=== PATIENT | female | born 1960 | race Caucasian/White ===

== ENCOUNTER 2016-05-12 11:29 | Emergency (ER) | payer SELFPAY ==
--- NOTE | 2016-05-12 13:18 | ED NURSING NOTES ---
Clinical Report - Nurses [facility] [address] [place] [address] 05/12/2016 11:32 Patient: PRINCE YOUNG TRIAGE Acuity: LEVEL 4. Chief Complaint: REDNESS TO RIGHT EYE. REDNESS TO LEFT EYE. Alert. No acute distress. --12:20 Sarah Xiong R.N. 12:14 05/12/16. BP: 121/81. HR: 89. RR: 16. O2 saturation: 96%. Temp: 98.3 F (oral). Pain level now: 12/03. --12:20 Sarah Xiong R.N. Weight: 56.6 kg stated. Height/Length: 68 inches Per Patient. BMI: 19. --12:17 Sarah Xiong R.N. Medications None. --12:19 Sarah Xiong R.N. Medication/allergy information source: the patient. --12:20 Sarah Xiong R.N. Allergies No Known Drug Allergy. --12:19 Sarah Xiong R.N. History Arrived by private vehicle. Historian: patient. Accompanied by (friend). Onset. (2 weeks ago). ( Pt states she feels she has syphlilis because her boyfriend "messes with this girl that has it and his eyes got red just like mine are now."). PAST MEDICAL HX: The patient is post-menopausal. SOCIAL HX: Current every day smoker (cigarette) (chews tobacco). No alcohol use or drug use. FALL RISK ASSESSMENT: Fall risk assessment completed. No fall risk identified. NUTRITIONAL RISK ASSESSMENT: The nutritional risk assessment revealed no deficiencies. FUNCTIONAL ASSESSMENT: Functional assessment: no impairments noted. LEARNING NEEDS ASSESSMENT: The learning needs assessment revealed no barriers. SKIN INTEGRITY ASSESSMENT: Skin integrity risk assessment completed. No skin integrity risk identified. --12:20 Sarah Xiong R.N. PROBLEMS: Otitis Externa. Pain in R scapula. Dental Pain. Dental Abscess. Abscess. LNMP - Last Normal Menstrual Period. --12:19 Sarah Xiong R.N. ADDITIONAL SURGERIES: Tonsillectomy. --12:19 Sarah Xiong R.N. Assessment GENERAL / NEURO / PSYCH: Alert. Oriented X 4. Appears in no acute distress. Patient appears calm and cooperative. RESPIRATORY: Respirations not labored. CVS: Capillary refill less than 2 seconds. GI / : Abdomen soft and nontender. SKIN: Mucous membranes are pink. Skin is warm and dry. --12:20 Sarah Xiong R.N. Interventions ID band on patient. To treatment room. --12:20 Sarah Xiong R.N. PHYSICAL ASSESSMENT Ambulatory to room. GENERAL / NEURO / PSYCH: Alert. Appears in no acute distress. HEENT: No facial asymmetry noted. Visual acuity without corrective lenses: left eye 20/100; right eye 20/100; both eyes 20/100. Conjunctival findings present: redness of the right conjunctiva and thin exudate present in the right eye and redness of the left conjunctiva and thin exudate present in the left eye. Mouth inspection within normal limits. RESPIRATORY: Respirations not labored. SKIN: Skin is warm and dry. Normal skin turgor. --12:22 Sarah Xiong R.N. NURSING PROGRESS NOTES 12:23 05/12/16. Two patient identifiers checked. Call light placed in reach. Side rails up x 1. Bed placed in lowest position. Brakes of bed on. Patient ready for evaluation- chart flagged and ED physician notified. --12:23 Sarah Xiong R.N. 12:50 05/12/2016 FLUORESCEIN Opth soln 1 Strip given. Allergies verified and confirmed 5 rights. (at bedside). --12:50 Sarah Xiong R.N. 12:50 05/12/2016 Proparacaine Eye Drops 1 drop given. Allergies verified and confirmed 5 rights. (placed at bedside for MD). --12:51 Sarah Xiong R.N. DISPOSITION / DISCHARGE Departure time: 1324May 12 2016. Condition at departure: improved and stable. No learning barriers present. Discharge instructions provided and reviewed with the patient. Reviewed medication(s) side effects, precautions, dosing and course information. Prescription(s) given to the patient. Patient verbalized understanding. Written instructions provided in German. The patient was discharged by the physician. She was discharged home and accompanied by picker/puller. She left the Emergency Department ambulatory and via private vehicle. Roll Handler driving. --18:50 Sarah Xiong R.N. Locked/Released at 05/12/2016 18:50 by Sarah Xiong R.N.
--- NOTE | 2016-05-12 13:18 | ED NURSING NOTES ---
Clinical Report - Nurses [facility] [address] [place] [address] 05/12/2016 11:32 Patient: PRINCE YOUNG TRIAGE Acuity: LEVEL 4. Chief Complaint: REDNESS TO RIGHT EYE. REDNESS TO LEFT EYE. Alert. No acute distress. --12:20 Sarah Xiong R.N. 12:14 05/12/16. BP: 121/81. HR: 89. RR: 16. O2 saturation: 96%. Temp: 98.3 F (oral). Pain level now: 12/03. --12:20 Sarah Xiong R.N. Weight: 56.6 kg stated. Height/Length: 68 inches Per Patient. BMI: 19. --12:17 Sarah Xiong R.N. Medications None. --12:19 Sarah Xiong R.N. Medication/allergy information source: the patient. --12:20 Sarah Xiong R.N. Allergies No Known Drug Allergy. --12:19 Sarah Xiong R.N. History Arrived by private vehicle. Historian: patient. Accompanied by (friend). Onset. (2 weeks ago). ( Pt states she feels she has syphlilis because her boyfriend "messes with this girl that has it and his eyes got red just like mine are now."). PAST MEDICAL HX: The patient is post-menopausal. SOCIAL HX: Current every day smoker (cigarette) (chews tobacco). No alcohol use or drug use. FALL RISK ASSESSMENT: Fall risk assessment completed. No fall risk identified. NUTRITIONAL RISK ASSESSMENT: The nutritional risk assessment revealed no deficiencies. FUNCTIONAL ASSESSMENT: Functional assessment: no impairments noted. LEARNING NEEDS ASSESSMENT: The learning needs assessment revealed no barriers. SKIN INTEGRITY ASSESSMENT: Skin integrity risk assessment completed. No skin integrity risk identified. --12:20 Sarah Xiong R.N. PROBLEMS: Otitis Externa. Pain in R scapula. Dental Pain. Dental Abscess. Abscess. LNMP - Last Normal Menstrual Period. --12:19 Sarah Xiong R.N. ADDITIONAL SURGERIES: Tonsillectomy. --12:19 Sarah Xiong R.N. Assessment GENERAL / NEURO / PSYCH: Alert. Oriented X 4. Appears in no acute distress. Patient appears calm and cooperative. RESPIRATORY: Respirations not labored. CVS: Capillary refill less than 2 seconds. GI / : Abdomen soft and nontender. SKIN: Mucous membranes are pink. Skin is warm and dry. --12:20 Sarah Xiong R.N. Interventions ID band on patient. To treatment room. --12:20 Sarah Xiong R.N. PHYSICAL ASSESSMENT Ambulatory to room. GENERAL / NEURO / PSYCH: Alert. Appears in no acute distress. HEENT: No facial asymmetry noted. Visual acuity without corrective lenses: left eye 20/100; right eye 20/100; both eyes 20/100. Conjunctival findings present: redness of the right conjunctiva and thin exudate present in the right eye and redness of the left conjunctiva and thin exudate present in the left eye. Mouth inspection within normal limits. RESPIRATORY: Respirations not labored. SKIN: Skin is warm and dry. Normal skin turgor. --12:22 Sarah Xiong R.N. NURSING PROGRESS NOTES 12:23 05/12/16. Two patient identifiers checked. Call light placed in reach. Side rails up x 1. Bed placed in lowest position. Brakes of bed on. Patient ready for evaluation- chart flagged and ED physician notified. --12:23 Sarah Xiong R.N. 12:50 05/12/2016 FLUORESCEIN Opth soln 1 Strip given. Allergies verified and confirmed 5 rights. (at bedside). --12:50 Sarah Xiong R.N. 12:50 05/12/2016 Proparacaine Eye Drops 1 drop given. Allergies verified and confirmed 5 rights. (placed at bedside for MD). --12:51 Sarah Xiong R.N. DISPOSITION / DISCHARGE Departure time: 1324May 12 2016. Condition at departure: improved and stable. No learning barriers present. Discharge instructions provided and reviewed with the patient. Reviewed medication(s) side effects, precautions, dosing and course information. Prescription(s) given to the patient. Patient verbalized understanding. Written instructions provided in Italian. The patient was discharged by the physician. She was discharged home and accompanied by tune up mechanic. She left the Emergency Department ambulatory and via private vehicle. Spring Winder driving. --18:50 Sarah Xiong R.N. Locked/Released at 05/12/2016 18:50 by Sarah Xiong R.N.
--- NOTE | 2016-05-12 13:18 | ED CLINICAL REPORT ---
Clinical Report - Physicians/Mid Levels [place] [facility] [address] [place] [address] 05/12/2016 11:32 Patient: PRINCE YOUNG Arrived- By private vehicle. Historian- patient. HISTORY OF PRESENT ILLNESS Chief Complaint: EYE REDNESS and IRRITATION. This started the past 2 weeks, involves the right and left eye, is characterized as moderate in severity and is still present. The patient did not sustain an injury. This occurred at work. Not injured from contact lenses. No direct trauma to the eyes. No chemical exposure or UV light exposure. Eye discomfort, burning, redness, irritation and itching. No blurred vision or double vision. REVIEW OF SYSTEMS No fever, sore throat or cough. All systems otherwise negative, except as recorded above. PAST HISTORY See nurses notes. Medications: None. Allergies: No Known Drug Allergy. SOCIAL HISTORY Smoker- current status unknown. No alcohol use or drug use. PHYSICAL EXAM Appearance: Alert. Oriented X3. No acute distress. HEENT: Ears normal. Nose normal. Pharynx normal. Head appears normal to external inspection. Rt Eye: Pupil 3mm. Eyes: Visual acuity noted- see nurse's notes. Pupils equal, round and reactive to light. Accommodation normal. No foreign bodies gross examination and with eversion of eyelids. Slit lamp examination with forcing does not reveal any signs of dendritic pattern. No uptake of dye. No cell and flare. No hypopyon. No hyphema. Lids and lashes and lacrimal are normal. Lt Eye: Pupil 3mm. Neck: Neck supple. Normal inspection. CVS: Normal heart rate and rhythm. Respiratory: No respiratory distress. Breath sounds normal. Abdomen: Nontender. No organomegaly. Skin: No rash. Extremities: No clubbing present. Extremities negative. Neuro: Oriented X 3. Mood/affect normal. No motor deficit. PROGRESS AND PROCEDURES Course of Care: The patient is a pleasant 56-year-old female with no pertinent past medical history presenting for evaluation of red irritated eyes. At this time differential diagnosis includes viral, bacterial, or allergic conjunctivitis. Patient's examination of the eye does not reveal any concerning symptoms such as corneal ulcers or dendritic pattern to the cornea. Do not feel patient has glaucoma at this time as it would be very unusual for her to have these symptoms in both eyes at the same time. The patient reported significant improvement with her symptoms after having the proparacaine eyedrops. Patient will be given a prescription for antibiotic eye ointment of erythromycin as well as follow-up with the eye clinic across the street. Patient reports significant improvement with her symptoms. Do not feel patient needs to be admitted to the hospital at this time. Do not feel patient has a significant injury to the eye requiring admission to the hospital or further emergency department workup/evaluation. Head discussion with patient in regards to her workup, diagnosis, home care, follow-up, and return precautions. All questions answered. The patient expressed understanding of these instructions and was agreeable to them. Disposition: Discharged. Condition: good. CLINICAL IMPRESSION 05/12/2016 12:14 BP: 121/81. HR: 89. RR: 16. O2 saturation: 96%. Temp: 98.3 F. Pain level now: 8/10. Blood pressure normal. Oxygen saturation normal. Acute serous conjunctivitis of the right eye and left eye. INSTRUCTIONS Warnings: GENERAL WARNINGS: Return or contact your physician immediately if your condition worsens or changes unexpectedly, if not improving as expected, or if other problems arise. Specifically return if pain, vomiting, bleeding, breathing difficulty or fever. Your Current Medications: CONTINUE TAKING THE FOLLOWING MEDICATIONS: None*. Prescription Medications: Erythromycin ophthalmic ointment 0.5% : apply 0.5 inch to inner aspect of the lower lid on the affected eye every 6 hours while awake for 5 days. Dispense three and one half (3.5) grams. No refill. (each eye) Hydroxyzine 50 mg: take 1 orally every 8 hours. Dispense twenty (20). No refill. (red eyes) Follow-up: Return to the emergency department as needed. Follow up with your doctor in three days. Reason for referral: recheck today's concerns. Summary of care provided to patient via paper. Screening today revealed the patient's blood pressure to be in the normal range. The patient should follow up with a primary care provider for blood pressure management. Understanding of the discharge instructions verbalized by patient. Follow-up with: Shikha Dominguez MD, Ophthalmology, [facility] [address], , [place], [address] Follow up in three days. Reason for referral: recheck today's concerns. Summary of care provided to patient via paper. (Electronically signed by Daniel Ahmadi Dr. 05/16/2016 6:10)
--- NOTE | 2016-05-12 13:18 | ED ORDER SUMMARY ---
..... Patient: PRINCE YOUNG OrderSheet [facility] VisitID: [id number] [place] [address] 56y, F Registration Date/Time: 05/12/2016 ORDER SHEET Weight: 56.6 kg (stated) Allergies: No Known Drug Allergy GENERAL ORDERS: MEDICATION ORDERS: Fluorescein Eye Strips 1 strips (NOW) (12:29 05/12/2016 Joann Balderas) (Ack 12:45 MWinterer R.N.) (12:50 MWinterer R.N.) Proparacaine Eye Drops (Solution 0.5 %) 2 drops (place at bedside) (12:05/12/2016 Joann Balderas) (Ack 12:45 MWinterer R.N.) (12:51 MWinterer R.N.) IV FLUIDS: ORDER SHEET NOTES: [Electronically signed by Sarah Xiong R.N. (18:50 05/12/2016)] [Electronically signed by Daniel Ahmadi Dr. (06:10 05/16/2016)] [Electronically locked/signed by Sarah Xiong R.N. (18:50 05/12/2016)]
--- NOTE | 2016-05-12 13:18 | ED ORDER SUMMARY ---
..... Patient: PRINCE YOUNG OrderSheet [facility] VisitID: [id number] [place] [address] 56y, F Registration Date/Time: 05/12/2016 ORDER SHEET Weight: 56.6 kg (stated) Allergies: No Known Drug Allergy GENERAL ORDERS: MEDICATION ORDERS: Fluorescein Eye Strips 1 strips (NOW) (12:29 05/12/2016 Joann Balderas) (Ack 12:45 MWinterer R.N.) (12:50 MWinterer R.N.) Proparacaine Eye Drops (Solution 0.5 %) 2 drops (place at bedside) (12:05/12/2016 Joann Balderas) (Ack 12:45 MWinterer R.N.) (12:51 MWinterer R.N.) IV FLUIDS: ORDER SHEET NOTES: [Electronically signed by Sarah Xiong R.N. (18:50 05/12/2016)] [Electronically signed by Daniel Ahmadi Dr. (06:10 05/16/2016)] [Electronically locked/signed by Sarah Xiong R.N. (18:50 05/12/2016)]
--- NOTE | 2016-05-12 13:18 | ED CLINICAL REPORT ---
Clinical Report - Physicians/Mid Levels [place] [address] [place] [address] 05/12/2016 11:32 Patient: PRINCE YOUNG Arrived- By private vehicle. Historian- patient. HISTORY OF PRESENT ILLNESS Chief Complaint: EYE REDNESS and IRRITATION. This started the past 2 weeks, involves the right and left eye, is characterized as moderate in severity and is still present. The patient did not sustain an injury. This occurred at work. Not injured from contact lenses. No direct trauma to the eyes. No chemical exposure or UV light exposure. Eye discomfort, burning, redness, irritation and itching. No blurred vision or double vision. REVIEW OF SYSTEMS No fever, sore throat or cough. All systems otherwise negative, except as recorded above. PAST HISTORY See nurses notes. Medications: None. Allergies: No Known Drug Allergy. SOCIAL HISTORY Smoker- current status unknown. No alcohol use or drug use. PHYSICAL EXAM Appearance: Alert. Oriented X3. No acute distress. HEENT: Ears normal. Nose normal. Pharynx normal. Head appears normal to external inspection. Rt Eye: Pupil 3mm. Eyes: Visual acuity noted- see nurse's notes. Pupils equal, round and reactive to light. Accommodation normal. No foreign bodies gross examination and with eversion of eyelids. Slit lamp examination with forcing does not reveal any signs of dendritic pattern. No uptake of dye. No cell and flare. No hypopyon. No hyphema. Lids and lashes and lacrimal are normal. Lt Eye: Pupil 3mm. Neck: Neck supple. Normal inspection. CVS: Normal heart rate and rhythm. Respiratory: No respiratory distress. Breath sounds normal. Abdomen: Nontender. No organomegaly. Skin: No rash. Extremities: No clubbing present. Extremities negative. Neuro: Oriented X 3. Mood/affect normal. No motor deficit. PROGRESS AND PROCEDURES Course of Care: The patient is a pleasant 56-year-old female with no pertinent past medical history presenting for evaluation of red irritated eyes. At this time differential diagnosis includes viral, bacterial, or allergic conjunctivitis. Patient's examination of the eye does not reveal any concerning symptoms such as corneal ulcers or dendritic pattern to the cornea. Do not feel patient has glaucoma at this time as it would be very unusual for her to have these symptoms in both eyes at the same time. The patient reported significant improvement with her symptoms after having the proparacaine eyedrops. Patient will be given a prescription for antibiotic eye ointment of erythromycin as well as follow-up with the eye clinic across the street. Patient reports significant improvement with her symptoms. Do not feel patient needs to be admitted to the hospital at this time. Do not feel patient has a significant injury to the eye requiring admission to the hospital or further emergency department workup/evaluation. Head discussion with patient in regards to her workup, diagnosis, home care, follow-up, and return precautions. All questions answered. The patient expressed understanding of these instructions and was agreeable to them. Disposition: Discharged. Condition: good. CLINICAL IMPRESSION 05/12/2016 12:14 BP: 121/81. HR: 89. RR: 16. O2 saturation: 96%. Temp: 98.3 F. Pain level now: 8/10. Blood pressure normal. Oxygen saturation normal. Acute serous conjunctivitis of the right eye and left eye. INSTRUCTIONS Warnings: GENERAL WARNINGS: Return or contact your physician immediately if your condition worsens or changes unexpectedly, if not improving as expected, or if other problems arise. Specifically return if pain, vomiting, bleeding, breathing difficulty or fever. Your Current Medications: CONTINUE TAKING THE FOLLOWING MEDICATIONS: None*. Prescription Medications: Erythromycin ophthalmic ointment 0.5% : apply 0.5 inch to inner aspect of the lower lid on the affected eye every 6 hours while awake for 5 days. Dispense three and one half (3.5) grams. No refill. (each eye) Hydroxyzine 50 mg: take 1 orally every 8 hours. Dispense twenty (20). No refill. (red eyes) Follow-up: Return to the emergency department as needed. Follow up with your doctor in three days. Reason for referral: recheck today's concerns. Summary of care provided to patient via paper. Screening today revealed the patient's blood pressure to be in the normal range. The patient should follow up with a primary care provider for blood pressure management. Understanding of the discharge instructions verbalized by patient. Follow-up with: Shikha Dominguez MD, Ophthalmology, [facility] [address], , [place], [address] Follow up in three days. Reason for referral: recheck today's concerns. Summary of care provided to patient via paper. (Electronically signed by Daniel Ahmadi Dr. 05/16/2016 6:10)
--- NOTE | 2016-05-16 06:10 | ED MED RECONCILIATION SUMMARY ---
Patient: PRINCE YOUNG Medication Reconciliation Report [facility] VisitID: [id number] [place] [address] 56y, F Registration Date/Time: 05/12/2016 Weight: 56.6 kg Height/Length: 68 in. BMI: 19.0 ALLERGIES: No Known Drug Allergy The patient's Home Medications are listed below: NONE. The source(s) of the original Home Medication information: patient The following Medications were given to the patient in the Emergency Department: FLUORESCEIN [EYE STRIPS] Opth soln 1 Strip, administered: 05/12/2016 12:50:00 PM Proparacaine [Eye Drops] Eye Drops 1 drop, administered: 05/12/2016 12:50:00 PM The following Medications were prescribed to the patient: Erythromycin ophthalmic ointment 0.5% : apply 0.5 inch to inner aspect of the lower lid on the affected eye every 6 hours while awake for 5 days. Dispense three and one half (3.5) grams. No refill.(each eye) -- Daniel Ahmadi Dr. Hydroxyzine 50 mg: take 1 orally every 8 hours. Dispense twenty (20). No refill.(red eyes) -- Daniel Ahmadi Dr.
--- NOTE | 2016-05-16 06:10 | ED MAR SUMMARY ---
..... Medication Administration Record [facility] [address] [place] [address] Patient: PRINCE YOUNG Visit ID: [id number] 56y, F Weight: 56.6 kg Height/Length: 68 in BMI: 19 ALLERGIES: No Known Drug Allergy Given 12:50 05/12/2016 Sarah Xiong, R.N. Medication Administered: FLUORESCEIN [EYE STRIPS], Dose: 1 Strip Opth soln. Medication Ordered: Fluorescein Eye Strips 1 strips (NOW). Given 12:50 05/12/2016 Sarah Xiong, R.N. Medication Administered: PROPARACAINE [EYE DROPS], Dose: 1 drop Eye Drops. Medication Ordered: Proparacaine Eye Drops (Solution 0.5 %) 2 drops (place at bedside).
--- NOTE | 2016-05-16 06:10 | ED MAR SUMMARY ---
..... Medication Administration Record [facility] [address] [place] [address] Patient: PRINCE YOUNG Visit ID: [id number] 56y, F Weight: 56.6 kg Height/Length: 68 in BMI: 19 ALLERGIES: No Known Drug Allergy Given 12:50 05/12/2016 Sarah Xiong, R.N. Medication Administered: FLUORESCEIN [EYE STRIPS], Dose: 1 Strip Opth soln. Medication Ordered: Fluorescein Eye Strips 1 strips (NOW). Given 12:50 05/12/2016 Sarah Xiong, R.N. Medication Administered: PROPARACAINE [EYE DROPS], Dose: 1 drop Eye Drops. Medication Ordered: Proparacaine Eye Drops (Solution 0.5 %) 2 drops (place at bedside).
--- NOTE | 2016-05-16 06:10 | ED MED RECONCILIATION SUMMARY ---
Patient: PRINCE YOUNG Medication Reconciliation Report [facility] VisitID: [id number] [place] [address] 56y, F Registration Date/Time: 05/12/2016 Weight: 56.6 kg Height/Length: 68 in. BMI: 19.0 ALLERGIES: No Known Drug Allergy The patient's Home Medications are listed below: NONE. The source(s) of the original Home Medication information: patient The following Medications were given to the patient in the Emergency Department: FLUORESCEIN [EYE STRIPS] Opth soln 1 Strip, administered: 05/12/2016 12:50:00 PM Proparacaine [Eye Drops] Eye Drops 1 drop, administered: 05/12/2016 12:50:00 PM The following Medications were prescribed to the patient: Erythromycin ophthalmic ointment 0.5% : apply 0.5 inch to inner aspect of the lower lid on the affected eye every 6 hours while awake for 5 days. Dispense three and one half (3.5) grams. No refill.(each eye) -- Daniel Ahmadi Dr. Hydroxyzine 50 mg: take 1 orally every 8 hours. Dispense twenty (20). No refill.(red eyes) -- Daniel Ahmadi Dr.
--- NOTE | 2016-05-16 06:10 | ED DISCHARGE INSTRUCTIONS ---
Patient: PRINCE YOUNG General Instructions [facility] VisitID: [id number] [place] [address] 56y, F Registration Date/Time: 05/12/2016 05/12/2016 12:14 BP: 121/81. HR: 89. RR: 16. O2 saturation: 96%. Temp: 98.3 F. Pain level now: 8/10. Blood pressure normal. Oxygen saturation normal. Acute serous conjunctivitis of the right eye and left eye. INSTRUCTIONS Warnings: GENERAL WARNINGS: Return or contact your physician immediately if your condition worsens or changes unexpectedly, if not improving as expected, or if other problems arise. Specifically return if pain, vomiting, bleeding, breathing difficulty or fever. Your Current Medications: CONTINUE TAKING THE FOLLOWING MEDICATIONS: None*. Prescription Medications: Erythromycin ophthalmic ointment 0.5% : apply 0.5 inch to inner aspect of the lower lid on the affected eye every 6 hours while awake for 5 days. Dispense three and one half (3.5) grams. No refill. (each eye) Hydroxyzine 50 mg: take 1 orally every 8 hours. Dispense twenty (20). No refill. (red eyes) Follow-up: Return to the emergency department as needed. Follow up with your doctor in three days. Reason for referral: recheck today's concerns. Summary of care provided to patient via paper. Screening today revealed the patient's blood pressure to be in the normal range. The patient should follow up with a primary care provider for blood pressure management. Understanding of the discharge instructions verbalized by patient. Follow-up with: Shikha Dominguez MD, Ophthalmology, [facility], [address] [place] [address] - [address], [place] [address] Follow up in three days. Reason for referral: recheck today's concerns. Summary of care provided to patient via paper. ADDITIONAL INFORMATION Conjunctivitis, Non-Specific The membrane that covers your eye is inflamed. Any itching, burning or irritation should go away within the next 24 hours. Conjunctivitis may be related to a particle that was in your eye. If so, it was washed out with your tears or irrigation treatment. Being exposed to liquid chemicals or fumes may also cause this reaction. Your condition does not appear to be due to an eye infection. Home Care: Apply a cold pack (ice in a plastic bag, wrapped in a towel) over the eye for 20 minutes at a time. This will reduce pain. Eye drops may be prescribed to reduce irritation or redness. Otherwise, Visine or similar [id number] decongestant eye drops may be used. You may use acetaminophen (Tylenol) or ibuprofen (Motrin, Advil) to control pain, unless another medicine was prescribed. [ NOTE: If you have chronic liver or kidney disease or ever had a stomach ulcer or GI bleeding, talk with your doctor before using these medicines.] Follow Up with your doctor or this facility as directed, or if your symptoms have not improved after 24 hours. Get Prompt Medical Attention if any of the following occur: Increased eyelid swelling Increase in eye pain Increased redness or drainage from the eye Failure of normal vision to return within 24-48 hours. Erythromycin Eye ointment What is this medicine? ERYTHROMYCIN (er ith denabárbara ALATORRE sin) is a macrolide antibiotic. It is used to treat bacterial eye infections. It also prevents a certain type of eye infection that can occur in some babies. How should I use this medicine? This medicine is only for use in the eye. Follow the directions on the prescription label. Wash hands before and after use. Tilt your head back slightly and pull your lower eyelid down with your index finger to form a pouch. Try not to touch the tip of the tube, to your eye, fingertips, or any other surface. Squeeze the end of the tube to apply a thin layer of the ointment to the inside of the lower eyelid. Close the eye gently to spread the ointment. Your vision may blur for a few minutes. Use your doses at regular intervals. Do not use your medicine more often than directed. Finish the full course prescribed by your doctor or health [facility] progressive care unit even if you think your condition is better. Do not stop using except on the advice of your doctor or health [facility] progressive care unit. Talk to your can pusher regarding the use of this medicine in children. Special care may be needed. What side effects may I notice from receiving this medicine? Side effects that you should report to your doctor or health r[facility] progressive care unit as soon as possible: allergic reactions like skin rash, itching or hives, swelling of the face, lips, or tongue burning, stinging, or itching of the eyes or eyelids changes in vision redness, swelling, or pain What may interact with this medicine? Interactions are not expected. Do not use any other eye products without telling your doctor or health [facility] progressive care unit. What if I miss a dose? If you miss a dose, use it as soon as you can. If it is almost time for your next dose, use only that dose. Do not use double or extra doses. Where should I keep my medicine? Keep out of the reach of children. Store at room temperature between 15 and 30 degrees C (59 and 86 degrees F). Do not freeze. Throw away any unused ointment after the expiration date. What should I tell my health care provider before I take this medicine? if you have an unusual or allergic reaction to erythromycin, foods, dyes, or preservatives or trying to get breast-feeding What should I watch for while using this medicine? Tell your doctor or health [facility] care unit if your symptoms do not improve in 2 to 3 days. Hydroxyzine Pamoate Oral capsule What is this medicine? HYDROXYZINE (percy DROX i zeen) is an antihistamine. This medicine is used to treat allergy symptoms. It is also used to treat anxiety and tension. This medicine can be used with other medicines to induce sleep before surgery. How should I use this medicine? Take this medicine by mouth with a full glass of water. Follow the directions on the prescription label. You may take this medicine with food or on an empty stomach. Take your medicine at regular intervals. Do not take your medicine more often than directed. Talk to your can pusher regarding the use of this medicine in children. Special care may be needed. While this drug may be prescribed for children as young as 6 years of age for selected conditions, precautions do apply. Patients over 65 years old may have a stronger reaction and need a smaller dose. What side effects may I notice from receiving this medicine? Side effects that you should report to your doctor or health r[facility] progressive care unit as soon as possible: fast or irregular heartbeat difficulty passing urine seizures slurred speech or confusion tremor Side effects that usually do not require medical attention (report to your doctor or health r[facility] progressive care unit if they continue or are bothersome): constipation drowsiness fatigue headache stomach upset What may interact with this medicine? alcohol barbiturate medicines for sleep or seizures medicines for colds, allergies medicines for depression, anxiety, or emotional disturbances medicines for pain medicines for sleep muscle relaxants What if I miss a dose? If you miss a dose, take it as soon as you can. If it is almost time for your next dose, take only that dose. Do not take double or extra doses. Where should I keep my medicine? Keep out of the reach of children. Store at room temperature between 15 and 30 degrees C (59 and 86 degrees F). Keep container tightly closed. Throw away any unused medicine after the expiration date. What should I tell my health care provider before I take this medicine? They need to know if you have any of these conditions: any chronic illness difficulty passing urine glaucoma heart disease kidney disease liver disease lung disease an unusual or allergic reaction to hydroxyzine, cetirizine, other medicines, foods, dyes, or preservatives or trying to get breast-feeding What should I watch for while using this medicine? Tell your doctor or health r[facility] progressive care unit if your symptoms do not improve. You may get drowsy or dizzy. Do not drive, use machinery, or do anything that needs mental alertness until you know how this medicine affects you. Do not stand or sit up quickly, especially if you are an older patient. This reduces the risk of dizzy or fainting spells. Alcohol may interfere with the effect of this medicine. Avoid alcoholic drinks. Your mouth may get dry. Chewing sugarless gum or sucking hard candy, and drinking plenty of water may help. Contact your doctor if the problem does not go away or is severe. This medicine may cause dry eyes and blurred vision. If you wear contact lenses you may feel some discomfort. Lubricating drops may help. See your eye doctor if the problem does not go away or is severe. If you are receiving skin tests for allergies, tell your doctor you are using this medicine. You have been given the following additional information: Conjunctivitis, Non-Specific Erythromycin Eye ointment Hydroxyzine Pamoate Oral capsule (Electronically signed by Daniel Ahmadi Dr. 05/16/2016 6:10)
--- NOTE | 2016-05-16 06:10 | ED DISCHARGE INSTRUCTIONS ---
Patient: PRINCE YOUNG General Instructions [facility] VisitID: [id number] [place] [address] 56y, F Registration Date/Time: 05/12/2016 05/12/2016 12:14 BP: 121/81. HR: 89. RR: 16. O2 saturation: 96%. Temp: 98.3 F. Pain level now: 8/10. Blood pressure normal. Oxygen saturation normal. Acute serous conjunctivitis of the right eye and left eye. INSTRUCTIONS Warnings: GENERAL WARNINGS: Return or contact your physician immediately if your condition worsens or changes unexpectedly, if not improving as expected, or if other problems arise. Specifically return if pain, vomiting, bleeding, breathing difficulty or fever. Your Current Medications: CONTINUE TAKING THE FOLLOWING MEDICATIONS: None*. Prescription Medications: Erythromycin ophthalmic ointment 0.5% : apply 0.5 inch to inner aspect of the lower lid on the affected eye every 6 hours while awake for 5 days. Dispense three and one half (3.5) grams. No refill. (each eye) Hydroxyzine 50 mg: take 1 orally every 8 hours. Dispense twenty (20). No refill. (red eyes) Follow-up: Return to the emergency department as needed. Follow up with your doctor in three days. Reason for referral: recheck today's concerns. Summary of care provided to patient via paper. Screening today revealed the patient's blood pressure to be in the normal range. The patient should follow up with a primary care provider for blood pressure management. Understanding of the discharge instructions verbalized by patient. Follow-up with: Shikha Dominguez MD, Ophthalmology, [facility], [address] [place] [address] - [address], [place] [address] Follow up in three days. Reason for referral: recheck today's concerns. Summary of care provided to patient via paper. ADDITIONAL INFORMATION Conjunctivitis, Non-Specific The membrane that covers your eye is inflamed. Any itching, burning or irritation should go away within the next 24 hours. Conjunctivitis may be related to a particle that was in your eye. If so, it was washed out with your tears or irrigation treatment. Being exposed to liquid chemicals or fumes may also cause this reaction. Your condition does not appear to be due to an eye infection. Home Care: Apply a cold pack (ice in a plastic bag, wrapped in a towel) over the eye for 20 minutes at a time. This will reduce pain. Eye drops may be prescribed to reduce irritation or redness. Otherwise, Visine or similar [id number] decongestant eye drops may be used. You may use acetaminophen (Tylenol) or ibuprofen (Motrin, Advil) to control pain, unless another medicine was prescribed. [ NOTE: If you have chronic liver or kidney disease or ever had a stomach ulcer or GI bleeding, talk with your doctor before using these medicines.] Follow Up with your doctor or this facility as directed, or if your symptoms have not improved after 24 hours. Get Prompt Medical Attention if any of the following occur: Increased eyelid swelling Increase in eye pain Increased redness or drainage from the eye Failure of normal vision to return within 24-48 hours. Erythromycin Eye ointment What is this medicine? ERYTHROMYCIN (er ith denabárbara ALATORRE sin) is a macrolide antibiotic. It is used to treat bacterial eye infections. It also prevents a certain type of eye infection that can occur in some babies. How should I use this medicine? This medicine is only for use in the eye. Follow the directions on the prescription label. Wash hands before and after use. Tilt your head back slightly and pull your lower eyelid down with your index finger to form a pouch. Try not to touch the tip of the tube, to your eye, fingertips, or any other surface. Squeeze the end of the tube to apply a thin layer of the ointment to the inside of the lower eyelid. Close the eye gently to spread the ointment. Your vision may blur for a few minutes. Use your doses at regular intervals. Do not use your medicine more often than directed. Finish the full course prescribed by your doctor or health critical care rn even if you think your condition is better. Do not stop using except on the advice of your doctor or health critical care rn. Talk to your agricultural aircraft pilot regarding the use of this medicine in children. Special care may be needed. What side effects may I notice from receiving this medicine? Side effects that you should report to your doctor or health critical care rn as soon as possible: allergic reactions like skin rash, itching or hives, swelling of the face, lips, or tongue burning, stinging, or itching of the eyes or eyelids changes in vision redness, swelling, or pain What may interact with this medicine? Interactions are not expected. Do not use any other eye products without telling your doctor or health critical care rn. What if I miss a dose? If you miss a dose, use it as soon as you can. If it is almost time for your next dose, use only that dose. Do not use double or extra doses. Where should I keep my medicine? Keep out of the reach of children. Store at room temperature between 15 and 30 degrees C (59 and 86 degrees F). Do not freeze. Throw away any unused ointment after the expiration date. What should I tell my health care provider before I take this medicine? if you have an unusual or allergic reaction to erythromycin, foods, dyes, or preservatives or trying to get breast-feeding What should I watch for while using this medicine? Tell your doctor or health critical care rn if your symptoms do not improve in 2 to 3 days. Hydroxyzine Pamoate Oral capsule What is this medicine? HYDROXYZINE (percy DROX i zeen) is an antihistamine. This medicine is used to treat allergy symptoms. It is also used to treat anxiety and tension. This medicine can be used with other medicines to induce sleep before surgery. How should I use this medicine? Take this medicine by mouth with a full glass of water. Follow the directions on the prescription label. You may take this medicine with food or on an empty stomach. Take your medicine at regular intervals. Do not take your medicine more often than directed. Talk to your agricultural aircraft pilot regarding the use of this medicine in children. Special care may be needed. While this drug may be prescribed for children as young as 6 years of age for selected conditions, precautions do apply. Patients over 65 years old may have a stronger reaction and need a smaller dose. What side effects may I notice from receiving this medicine? Side effects that you should report to your doctor or health critical care rn as soon as possible: fast or irregular heartbeat difficulty passing urine seizures slurred speech or confusion tremor Side effects that usually do not require medical attention (report to your doctor or health critical care rn if they continue or are bothersome): constipation drowsiness fatigue headache stomach upset What may interact with this medicine? alcohol barbiturate medicines for sleep or seizures medicines for colds, allergies medicines for depression, anxiety, or emotional disturbances medicines for pain medicines for sleep muscle relaxants What if I miss a dose? If you miss a dose, take it as soon as you can. If it is almost time for your next dose, take only that dose. Do not take double or extra doses. Where should I keep my medicine? Keep out of the reach of children. Store at room temperature between 15 and 30 degrees C (59 and 86 degrees F). Keep container tightly closed. Throw away any unused medicine after the expiration date. What should I tell my health care provider before I take this medicine? They need to know if you have any of these conditions: any chronic illness difficulty passing urine glaucoma heart disease kidney disease liver disease lung disease an unusual or allergic reaction to hydroxyzine, cetirizine, other medicines, foods, dyes, or preservatives or trying to get breast-feeding What should I watch for while using this medicine? Tell your doctor or health critical care rn if your symptoms do not improve. You may get drowsy or dizzy. Do not drive, use machinery, or do anything that needs mental alertness until you know how this medicine affects you. Do not stand or sit up quickly, especially if you are an older patient. This reduces the risk of dizzy or fainting spells. Alcohol may interfere with the effect of this medicine. Avoid alcoholic drinks. Your mouth may get dry. Chewing sugarless gum or sucking hard candy, and drinking plenty of water may help. Contact your doctor if the problem does not go away or is severe. This medicine may cause dry eyes and blurred vision. If you wear contact lenses you may feel some discomfort. Lubricating drops may help. See your eye doctor if the problem does not go away or is severe. If you are receiving skin tests for allergies, tell your doctor you are using this medicine. You have been given the following additional information: Conjunctivitis, Non-Specific Erythromycin Eye ointment Hydroxyzine Pamoate Oral capsule (Electronically signed by Daniel Ahmadi Dr. 05/16/2016 6:10)
== END 2016-05-12 13:25 | disposition home or self-care (01) ==
LOC: ED SRH 11:29
DX: H10.233 Serous conjunctivitis, except viral, bilateral (principal)